=== PATIENT | female | born 1990 | race American Indian/Alaskan Native ===

== ENCOUNTER 2021-04-30 16:53 | Emergency (ER) | payer MEDICAID ==
[2021-04-30 18:40] VITALS: BP 115/85
--- NOTE | 2021-04-30 22:01 | Emergency Department Report ---
ED General Adult HPI - General Chief complaint: Medical Clearance Stated complaint: ACCIDENT/KNEE/FACE PAIN Source: family Mode of arrival: Wheelchair Limitations: Other - History of Present Illness Initial comments: Per grandmother, patient is a 31-year-old -[place] female with a history of cerebral palsy with bilateral upper and lower extremity deformities and nonambulatory but wheelchair-bound who presents to the ED for evaluation after a ceiling caved in and fell on her 4 days ago. Grandmother states that the patient sustained mild facial and left knee abrasions during that accident 4 days ago. Grandmother states that the patient has not had any nausea, vomiting, loss of consciousness, seizures, syncope, nausea and vomiting, upper and lower extremity pain or change in vision, abdominal pain or cough, chest pain or shortness of breath. MD Complaint: Facial and left knee abrasions -: Sudden, days(s) (4) Location: face, lower extremity (left knee abrasion) Radiation: non-radiation Severity scale (0 -10): 0 Consistency: now resolved Improves with: none Worsens with: none Associated Symptoms: denies other symptoms. denies: confusion, chest pain, cough, diaphoresis, fever/chills, headaches, loss of appetite, malaise, nausea/vomiting, seizure, shortness of breath, syncope, weakness Treatments Prior to Arrival: none - Related Data Allergies Allergy/AdvReac Type Severity Reaction Status Date / Time No Known Allergies Allergy Unverified 04/30/21 18:40 ED Review of Systems ROS: Stated complaint: ACCIDENT/KNEE/FACE PAIN Other details as noted in HPI Constitutional: denies: chills, fever Eyes: denies: eye pain, eye discharge, vision change ENT: other (Mild facial abrasions). denies: ear pain, throat pain Respiratory: denies: cough, shortness of breath, wheezing Cardiovascular: denies: chest pain, palpitations Endocrine: no symptoms reported Gastrointestinal: denies: abdominal pain, nausea, diarrhea Genitourinary: denies: urgency, dysuria, discharge Musculoskeletal: denies: back pain, joint swelling, arthralgia Skin: other (Mild left knee abrasions). denies: rash, lesions Neurological: denies: headache, weakness, paresthesias Psychiatric: denies: anxiety, depression Hematological/Lymphatic: denies: easy bleeding, easy bruising ED Past Medical Hx - Past Medical History Additional medical history: Cerebral palsy - Surgical History Past Surgical History?: No ED Physical Exam - General Limitations: Other General appearance: alert, in no apparent distress - Head Head exam: Present: other (Mild small facial abrasions) - Eye Eye exam: Present: normal appearance, PERRL, EOMI - ENT ENT exam: Present: normal exam, normal orophraynx, mucous membranes moist, TM's normal bilaterally, normal external ear exam - Neck Neck exam: Present: normal inspection, full ROM - Respiratory Respiratory exam: Present: normal lung sounds bilaterally. Absent: respiratory distress, wheezes, rales, rhonchi, chest wall tenderness, decreased breath sounds, prolonged expiratory - Cardiovascular Cardiovascular Exam: Present: regular rate, normal rhythm, normal heart sounds. Absent: systolic murmur, diastolic murmur, rubs, gallop - GI/Abdominal GI/Abdominal exam: Present: soft, normal bowel sounds. Absent: tenderness, guarding, hyperactive bowel sounds, hypoactive bowel sounds - Extremities Exam Extremities exam: Present: normal inspection, full ROM, normal capillary refill, other (Bilateral upper and lower extremity deformities due to baseline chronic cerebral palsy) - Back Exam Back exam: Present: normal inspection, full ROM. Absent: tenderness, CVA tenderness (L), muscle spasm, paraspinal tenderness, vertebral tenderness - Neurological Exam Neurological exam: Present: alert, oriented X3, CN II-XII intact, abnormal gait (Nonambulatory due to baseline chronic cerebral palsy), reflexes normal - Psychiatric Psychiatric exam: Present: normal affect, normal mood - Skin Skin exam: Present: warm, dry, intact, normal color, abrasion (Mild abrasions on left knee). Absent: rash ED Course Vital Signs 04/30/21 18:34 Temperature 97.9 F Pulse Rate 95 H Respiratory 16 Rate Blood Pressure 115/85 O2 Sat by Pulse 100 Oximetry ED Medical Decision Making - Medical Decision Making This is a 31-year-old -[place] female with a history of cerebral palsy with bilateral upper and lower extremity deformities and nonambulatory but wheelchair-bound who presents to the ED for evaluation after a ceiling caved in and fell on her 4 days ago. Grandmother states that the patient sustained mild facial and left knee abrasions during that accident 4 days ago. In the ED, patient is alert and oriented by age, fully interactive during the physical exam as expected over patient with cerebral palsy. Patient is hemodynamically stable. Physical exam is unremarkable except for mild facial and left knee abrasions from the injury. Grandmother states that the patient has not had any change in mental status, physical activity or lack of appetite but has been acting normal at her baseline state. Patient was therefore discharged home and family was advised to observe the patient for any worsening symptoms and to have the patient return to the ED immediately for further evaluation. Family was also advised of the patient follow-up with a primary care physician in 7 to 10 days for reevaluation. - Differential Diagnosis Facial contusion; left knee contusion; abrasions Critical care attestation.: If time is entered above; I have spent that time in minutes in the direct care of this critically ill patient, excluding procedure time. ED Disposition Clinical Impression: Abrasions of multiple sites Contusion of face Qualifiers: Encounter type: initial encounter Qualified Code(s): S00.83XA - Contusion of other part of head, initial encounter Disposition: DC-01 TO HOME OR SELFCARE Is pt being admited?: No Does the pt Need Aspirin: No Condition: Stable Instructions: Facial or Scalp Contusion, [id number] Additional Instructions: Follow-up with a primary care physician in 7 to 10 days for reevaluation. Otherwise return to the ED immediately if symptoms get worse. Referrals: [facility] [place] [Provider Group] - 7-10 days Time of Disposition: 22:04 Print Language: TOGOLESE
== END 2021-04-30 22:44 | disposition home or self-care (01) ==
LOC: ED 16:53
DX: S00.83XA Contusion of other part of head, initial encounter (principal); S00.81XA Abrasion of other part of head, initial encounter; S80.212A Abrasion, left knee, initial encounter; X58.XXXA Exposure to other specified factors, initial encounter; Y93.89 Activity, other specified; Y92.89 Other specified places as the place of occurrence of the external cause; Y99.8 Other external cause status
CPT/HCPCS: 99282